=== PATIENT | male | born 1985 | race Caucasian/White ===

== ENCOUNTER 2019-10-04 11:02 | Emergency (ER) | payer SELFPAY ==
--- NOTE | ~2019-10-04 | CT_ITS ---
EXAMINATION: CTA chest PE protocol DATE: 10/04/2019 12:21 INDICATION: Chest pain TECHNIQUE: Computed tomography angiography (CTA) of the chest was performed with 100 mL Omnipaque-350 intravenous contrast timed to evaluate the pulmonary arteries. Coronal maximum intensity projection 3D-reconstructions were created by the technologist. The dose-length product (DLP) was 614.13 mGy-cm. Automated exposure control and iterative reconstruction technique were employed. COMPARISON: 01/26/2019 FINDINGS: The pulmonary arteries are well-opacified. No pulmonary embolism is identified. The lungs a re free of acute opacities. There is no pleural effusion or pneumothorax. Calcified pulmonary nodules and calcified right hilar and subcarinal lymph nodes are consistent with old granulomatous disease. No pathologically enlarged thoracic lymph nodes are identified. The heart size is normal. IMPRESSION: 1. No pulmonary embolism or acute cardiopulmonary abnormality. Reviewed, dictated and finalized at location A.
[2019-10-04 11:13] VITALS: BP 143/74; PULSE 119; RESP 20; TEMP 36.9; O2SAT 99
--- NOTE | 2019-10-04 11:27 | ECG_ITS ---
Measurements Intervals [place] Rate: 117 P: 70 MA: 124 QRS: 79 QRSD: 75 T: 61 QT: 284 QTc: 398 Interpretive Statements SINUS TACHYCARDIA POSSIBLE LEFT ATRIAL ENLARGEMENT DELAYED PRECORDIAL R/S TRANSITION BASELINE ARTIFACT- I, II, III ABNORMAL ECG Electronically Signed On 10-04-2019 14:01:15 CDT by Mata Rasheed D.O.
[2019-10-04 11:45] LABS: Basophils Absolute Auto 0.06 K/mm3 (0.00-0.10); Basophils Percent Auto 0.7 % (0.0-1.0); Eosinophils Absolute Auto 0.17 K/mm3 (0.02-0.50); Eosinophils Percent Auto 1.9 % (1.0-6.0); Hematocrit 53.2 % (40.0-54.0); Hemoglobin 18.6 g/dL (14.0-18.0); Immature Granulocyte Absolute 0.02 K/mm3 (0.00-0.00); Immature Granulocyte Percent A 0.2 % (0.0-0.0); Lymphocytes Absolute Auto 2.62 K/mm3 (1.10-4.50); Lymphocytes Percent Auto 28.9 % (18.0-42.0); Mean Corpuscular Hemoglobin 30.7 pg (27.0-31.0); Mean Corpuscular Volume 87.8 fL (78.0-102.0); Mean Platelet Volume 10.8 fl (8.7-11.0); Monocytes Absolute Auto 0.69 K/mm3 (0.10-0.90); Monocytes Percent Auto 7.6 % (2.0-11.0); Neutrophils Absolute Auto 5.5 K/mm3 (1.7-7.2); Neutrophils Percent Auto 60.7 % (50.0-70.0); Platelet Count Result 293 K/mm3 (150-420); Red Blood Count 6.06 M/mm3 (4.70-6.10); Red Cell Distribution Width 13.3 % (11.6-14.4); White Blood Count 9.1 K/mm3 (4.8-10.8)
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
[2019-10-04 11:58] LABS: D Dimer 0.19 mg/L (0.19-0.50); INR 1.1; Prothrombin Time 11.8 Seconds (9.64-11.0)
[2019-10-04 12:03] LABS: Anion Gap 11.8 mmol/L (7-16); Blood Urea Nitrogen 5 mg/dL (7-18); Calcium 9.8 mg/dL (8.5-10.1); Carbon Dioxide 29 mmol/L (21-32); Chloride 101 mmol/L (98-108); Estimated Glomerular Filt Rate > 60; Glucose 93 mg/dL (70-99); Osmolality Calculated 283 mOsm/kg (285-295); Potassium 3.8 mmol/L (3.5-5.1); Sodium 138 mmol/L (136-145)
[2019-10-04 12:04] LABS: Troponin I < 0.02 ng/mL (0.00-0.056)
[2019-10-04 12:12] LABS: BNP < 5 pg/mL (0-100)
[2019-10-04] MEDS: KETOROLAC 15 MG/ML VIAL (*BKC) IV PUSH (12:55)
[2019-10-04 13:05] VITALS: PULSE 16
== END 2019-10-04 13:05 | disposition home or self-care (01) ==
PROVIDERS: Emergency Provider Family Medicine; PCP Nurse Practitioner
DX: R07.81 Pleurodynia (principal); M94.0 Chondrocostal junction syndrome [Tietze]
CPT/HCPCS: 36415; 71275; 80048; 83880; 84484; 85025; 85380; 85610; 93005; 96374; 99284; J1885; Q9965